=== PATIENT | female | born 1945 | race Caucasian/White ===

== ENCOUNTER → 2020-09-27 10:35 | Day surgery (SDC) | payer MEDICARE ==
[~2020-09-27] VITALS: Ht 152.4 cm; Wt 52.3 kg
[~2020-09-27 10:35] MED LIST: ALDACTONE25 MG PO; BAYER CHEWABLE81 MG PO; BIKTARVY 50-201 EACH PO; BISOPROLOL FUMAR5 MG PO; CALCIUM 600 +1 EAC3 PO; COLACE100 MG PO; FENOFIBRATE134 MG PO; FUROSEMIDE20 MG PO; GABAPENTIN100 MG PO; MERIBIN5 MG PO; NEURONTIN 300300 MG PO; NEXIUM40 MG PO; POTASSIUM99 M1 PO; PRAVACHOL20 MG PO; VALIUM10 MG PO; VITAMIN D-32000 UNI2 PO
[2020-09-27 11:13] LABS: HEMATOCRIT 36.6 % (36.0-48.0); HEMOGLOBIN 12.3 g/dL (12-16); MCH 32.5 pg (26.0-34.0); MCHC 33.6 g/dL (31.0-37.0); MCV 96.6 fL (80.0-100.0); MEAN PLATELET VOLUME 8.3 fL (7.4-10.4); PLATELET COUNT 211 10x3/uL (130-400); RBC 3.79 10x6/uL (4.00-5.40); RDW 11.9 % (11.5-14.5); WBC 2.7 10x3/uL (4.8-10.8)
[2020-09-27 11:25] LABS: ALBUMIN 3.7 g/dL (3.4-5.0); ANION GAP 12.5 mmol/L (8-16); BILIRUBIN - TOTAL 0.25 mg/dL (0.2-1.3); CALCIUM 9.4 mg/dL (8.5-10.1); CARBON DIOXIDE 30.2 mmol/L (21.0-32.0); POTASSIUM - SERUM 3.7 mmol/L (3.5-5.1); PROTEIN - SERUM 8.5 g/dL (6.4-8.2)
[2020-09-27 12:48] VITALS: BP 127/700; Ht 152.4 cm; Wt 52.3 kg
--- NOTE | 2020-09-27 14:16 | NUR ---
DC INSTRUCTIONS GIVEN TO PT/FAMILY. STATE UNDERSTANDING .DC'D IV CATH FULLY INTACT. WILL DC AT APPROPRIATE TIME.
--- NOTE | 2020-09-27 14:30 | NUR ---
PT IS GETTING DRESSED W/ HELP FROM FAMILY. PT HAS OWN WC AND WILL BE DC'D SOON. WILL CONTINUE TO MONITOR.
[2020-09-27 14:34] LABS: LYMPHOCYTES 23 % (15-50); MONOCYTES 11 % (2-11); NEUTROPHILS 66 % (40-80); PLATELET ESTIMATE NORMAL
--- NOTE | 2020-09-28 14:46 | OP ---
PATIENT NAME: BUBBA DENISE MEDICAL RECORD: [id number] :47 LOCATION:D.OPS ADMISSION DATE: SURGEON: SONYA ARROYO MD DATE OF OPERATION: 09/27/2020 PROCEDURE: Colonoscopy. PREOPERATIVE DIAGNOSIS: Positive Cologuard and screening colonoscopy. MEDICATION: Propofol per anesthesia. DESCRIPTION OF PROCEDURE: The patient was made comfortable in the left lateral position. The colonoscope was inserted through the rectum and advanced to the cecum, identified by the ileocecal valve and the appendiceal orifice. The quality of the prep was good. There were multiple sigmoid diverticula visualized in the sigmoid colon. There were nonbleeding internal hemorrhoids viewed on retroflexion. In the proximal ascending colon was a large 1.5 cm polyp. This polyp was on a pedunculated stalk. The polyp was able to be completely removed with hot snare polypectomy. There was no bleeding after the procedure. The patient tolerated the procedure well. The remainder of the exam was normal other than multiple sigmoid diverticula and descending colon diverticula. FINAL DIAGNOSES: 1. Large ascending colon polyp removed with hot snare polypectomy. 2. Multiple diverticula in the left and right colon. PLAN: Check histology results. Advance diet. Recommend repeat colonoscopy in 3 to 4 months to examine polypectomy site. 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
== END | disposition home or self-care (01) ==
LOC: D.OPS 10:35
PROVIDERS: ATTEND Internal Medicine Gastroenterology
DX: Z12.11 Encounter for screening for malignant neoplasm of colon (principal); R19.5 Other fecal abnormalities; K64.8 Other hemorrhoids; K63.5 Polyp of colon; K57.30 Diverticulosis of large intestine without perforation or abscess without bleeding; K21.9 Gastro-esophageal reflux disease without esophagitis